=== PATIENT | male | born 1990 | race Caucasian/White ===

== ENCOUNTER 2022-09-27 10:31 | Emergency (ER) | payer BC ==
[~2022-09-27] VITALS: Ht 193 cm; Wt 97.5 kg
[2022-09-27] MEDS ORDERED: DEXT10TA7 PO (11:05)
[2022-09-27] MEDS ORDERED: MORPHINE SULFATE 4 MG/1 ML DISP.SYRIN ONE (11:15)
[2022-09-27] MEDS ORDERED: MORPHINE SULFATE 2 MG/1 ML DISP.SYRIN IM ONE (11:15)
--- NOTE | 2022-09-27 11:19 | NUR ---
1st contact with patient: AOx4, calm and breathing easily, pain medicine given, pending x-rays at this time. Girlfriend (who is a nurse)[email or web address].
--- NOTE | 2022-09-27 11:59 | NUR ---
Nursing SBAR to primary 5A nurse Anca, pending x-ray results. Patient is resting comfortably on gurney. Decreased pains expressed by patient. Per patient, "As long as I am not moving the wrist, it's okay."
[2022-09-27] MEDS ORDERED: PROPOFOL 200 MG/20 ML BOTTLE ONE ×2 (13:34→13:50)
[2022-09-27] MEDS ORDERED: PROPOFOL 1,000 MG/100 ML BOTTLE IV ONE ×2 (13:45→14:45)
--- NOTE | 2022-09-27 14:20 | NUR ---
Patient awake after procedural sedation. is now at bedeside.
[2022-09-27] MEDS ORDERED: HYDROCODONE/APAP 5-325MG TABLET ONE (14:24)
[2022-09-27] MEDS ORDERED: HYDR-3972 PO (14:25)
[2022-09-27] MEDS ORDERED: HYDROCODONE/APAP 5-325MG TABLET PO ONE (14:30)
--- NOTE | 2022-09-27 15:05 | NUR ---
Patient a/o x 4. NAD noted. Ambulatory with a steady gait. All belongings with patient. Patient discharged to home in stable condition. Written and verbal after care instructions given. Patient verbalizes understanding of instructions. Stressed follow up or return to ER for worsening s/s.
[2022-09-27 15:12] VITALS: BP 129/65
[2022-09-27] MEDS ORDERED: IV NORMAL SALINE 500 ML BAG IV ONE (15:15)
[2022-09-27] MEDS ORDERED: HYDR-4275 PO (17:15)
[2022-09-27] MEDS ORDERED: HYDR-3980 PO ×2 (17:17→21:09)
== END 2022-09-27 15:10 | disposition home or self-care (01) ==
LOC: ER 10:35
DX: S52.502A Unspecified fracture of the lower end of left radius, initial encounter for closed fracture (principal); Z79.899 Other long term (current) drug therapy; W18.39XA Other fall on same level, initial encounter; Y93.61 Activity, american tackle football; Y92.89 Other specified places as the place of occurrence of the external cause; Y99.8 Other external cause status
CPT/HCPCS: 25605; 73090; 73110; 99285; 96360; 96372; 73100; J2270; J7040; A4663; J3490